=== PATIENT | female | born 1945 | race Caucasian/White ===

== ENCOUNTER 2020-07-07 11:10 | Day surgery (SDC) | payer MEDICARE, SELFPAY ==
[2020-07-07 11:15] VITALS: BP 167/96; PULSE 87; RESP 18; TEMP 36.3; O2SAT 95
[2020-07-07] MEDS: Tropicam./Phenyleph. (1/2.5%) 5 ML BTL OS ×3 (11:28→11:42)
[2020-07-07] MEDS: Tetracaine 0.5% 4 ML BTL OS (12:39)
[2020-07-07] MEDS: Lidocaine 2% Jelly 6 ML SYR (12:40)
[2020-07-07] MEDS: Povidone-Iodine Ophth 30 ML BTL (12:40)
[2020-07-07] MEDS: Lidocaine 1% Pres-Free 5 ML VIAL (12:46)
[2020-07-07] MEDS: Balanced Salt Soln.-PLUS 500 ML BAG (12:53)
[2020-07-07] MEDS: Duovisc Viscoelastic System EACH 1 EACH (12:54)
--- NOTE | 2020-07-07 13:10 | W.PM.DSUDISC ---
Discharge Plan Disposition Patient Disposition: HOME Condition: Good Discharge Details Attending Provider: Lake Gauthier Primary Care Provider: Christen Sierra V Home Meds and New Rx's Prescriptions: No Action No Known Home Meds RF: 0 Discharge Instructions Stand Alone Forms: Post-op Topical Cataract Discharge Orders Discharge Orders: Discharge Order (Routine); Ordered 07/07/20 Ordered By: Lake Gauthier DS: Diagnosis Discharge Diagnosis (1) Cortical cataract of left eye: Status: Resolved (2) Nuclear sclerotic cataract of left eye: Status: Resolved
--- NOTE | 2020-07-07 13:11 | W.PM.OP ---
Date of service: 07/07/20 Time of Service: 13:12 Operative Note Operative Note DATE OF PROCEDURE: 07/07/20 PRE-OP DIAGNOSIS: Nuclear cataract, left eye POST-OP DIAGNOSIS: same PROCEDURE: Cataract extraction using phacoemulsification with intraocular lens implant, left eye SURGEON: Lake Gauthier ANESTHESIA: MAC and local (sub-tenon's anesthetic infiltration) PATHOLOGY: none sent COMPLICATIONS: None Patient was transported to: same day Patient's condition: stable Implants: Dread and Dread Vision / [employer] Tecnis ZCB00 Indications: Progressive decreased vision due to cataract, left eye Procedure Description: CATARACT SURGERY OPERATIVE REPORT PREOPERATIVE DIAGNOSIS: Nuclear cataract, left eye POSTOPERATIVE DIAGNOSIS: Same OPERATION: Cataract extraction using phacoemulsification with posterior chamber intraocular lens implant, left eye. IOL: IOL Process Control Board Operator/Model: J&J Vision / DANILO Tecnis ZCB00 IOL Power: + 20.0 diopters IOL Serial Number: [id number] Optic Diameter: 6.0mm Haptic/Overall Diameter: 13.0mm PHACO INFO: Jorge [employer] USAurion Vision System with OZil and Active Fluidics Cumulative Dispersed Energy (CDE): 7.36 seconds SURGEON: Lake Gauthier MD, YAZAN ANESTHESIA: Monitored Anesthesia Care (MAC), with local sub-tenon's anesthetic infiltration COMPLICATIONS: None SPECIMENS: None INDICATIONS FOR PROCEDURE: The patient is a 74-year-old lady with history of diminished visual acuity in both eyes secondary to the development of bilateral nuclear cataract. She is significantly symptomatic that she desires cataract surgery and attempt to improve and maximize her vision. PROCEDURE: The correct surgical eye was identified and marked as the left eye and the pupil was dilated in the preoperative area using mydriatics and cycloplegics. The dilated pupil size was 7.0 mm. Oral sedation was administered in the form of an Imprimis MKO Melt (midazolam 3mg/ketamine 25mg/ondansetron 2mg). The patient was brought to the operating room where cardiopulmonary monitoring was instituted and surgical time-out was performed, confirming the correct operative eye and IOL power. Topical anesthesia was administered and ophthalmic povidone-iodine 5% was instilled into the conjunctival fornices. Lidocaine gel was applied to the cornea and the roger-ocular area was prepped with Betadine 10% solution and draped in the usual sterile fashion for intraocular surgery, including an aperture drape. A Tegaderm transparent film dressing was cut in half and used to cover the lashes and lid margins. Care was taken to sequester the lashes and lid margins under the Tegaderm dressing. A lid speculum was placed between the lids of the operative eye and the Angelo-Jd operating microscope was maneuvered into position. Yariel scissors were then used to make a conjunctival buttonhole approximately 6mm posterior to the limbus in the inferonasal quadrant. Blunt dissection was carried out to expose bare sclera, and a blunt-tipped sub-tenon?s anesthesia cannula was introduced and passed posteriorly along the globe where non-preserved plain lidocaine was injected into posterior sub-Tenon?s space. A sideport knife was used to make a paracentesis port superior/superiortemporally. Intraocular phenylephrine/lidocaine was injected into the anterior chamber. The anterior chamber was then filled with viscoelastic. A 2.4mm keratome knife was used to create a half-thickness groove at the limbus and then to construct a three-plane near-clear corneal tunnel extending 2.0mm into clear cornea in the temporal position. . A flap was raised on the anterior capsule and capsulorhexis forceps were used to complete a continuous curvilinear capsulorhexis of 5.0 mm. Balanced salt solution was then used to perform cortical cleaving hydrodissection and nuclear hydrodelineation until the lens could be freely rotated within the capsular bag. The lens nucleus was then disassembled and removed within the capsular bag and iris plane using phacoemulsification. Residual cortical material was removed using the 45-degree angled silicone I/A tip with 0.3mm port. The posterior capsule was carefully polished to remove as much residual lens epithelial cells as safely possible. The capsular bag was then inflated and the anterior chamber deepened with viscoelastic. The lens implant described above was inserted into the capsular bag using the DANILO [place] Injector. A Kuglen hook was used to dial the IOL into position. Residual viscoelastic was then removed first from posterior to the IOL, then from the anterior chamber using the I/A handpiece. The lens implant was noted to center nicely within the capsular bag. The incisions were stromally hydrated, and the anterior chamber was reformed using BSS. Then 0.5cc of moxifloxacin 1.0mg/ml were injected into the capsular bag and anterior chamber. The incisions were checked with a Weck spear and found to be secure. Several drops of ophthalmic povidone-iodine 5% were then applied to the eye followed by two drops of Imprimis combination prednisolone/moxifloxacin/nepafenac solution. The drapes were removed and a clear plastic protective eye shield was placed over the eye. The patient was then returned to Same Day Surgery in stable condition.
[2020-07-07 13:39] VITALS: BP 138/88; PULSE 80; RESP 17; TEMP 36.4; O2SAT 93
== END 2020-07-07 13:56 | disposition home or self-care (01) ==
PROVIDERS: PCP Family Medicine; Visit Provider Ophthalmology
PROC: (CPT 66984; principal; 2020-07-07 13:30)
DX: H25.012 Cortical age-related cataract, left eye (principal); H25.12 Age-related nuclear cataract, left eye; K21.9 Gastro-esophageal reflux disease without esophagitis
CPT/HCPCS: 66984; V2632

== ENCOUNTER 2020-07-21 07:18 | Day surgery (SDC) | payer MEDICARE, SELFPAY ==
[2020-07-21 07:30] VITALS: BP 153/91; PULSE 86; RESP 18; TEMP 36.5; O2SAT 95
[2020-07-21] MEDS: Tropicam./Phenyleph. (1/2.5%) 5 ML BTL OD ×3 (07:47→08:01)
[2020-07-21] MEDS: Tetracaine 0.5% 4 ML BTL OD (08:49)
[2020-07-21] MEDS: Povidone-Iodine Ophth 30 ML BTL (08:50)
[2020-07-21] MEDS: Lidocaine 2% Jelly 6 ML SYR (08:50)
[2020-07-21] MEDS: Lidocaine 1% Pres-Free 5 ML VIAL (08:56)
[2020-07-21] MEDS: Balanced Salt Soln.-PLUS 500 ML BAG (08:57)
[2020-07-21] MEDS: Duovisc Viscoelastic System EACH 1 EACH (08:57)
--- NOTE | 2020-07-21 09:19 | W.PM.DSUDISC ---
Discharge Plan Disposition Patient Disposition: HOME Discharge Details Attending Provider: Lake Gauthier Primary Care Provider: Christen Sierra V Home Meds and New Rx's Prescriptions: No Action No Known Home Meds RF: 0 Discharge Instructions Stand Alone Forms: Post-op Topical Cataract, Niranjan Alvarado (DSU) Discharge Orders Discharge Orders: Discharge Order (Routine); Ordered 07/21/20 Ordered By: Lake Gauthier DS: Diagnosis Discharge Diagnosis (1) Nuclear sclerotic cataract of right eye: Status: Resolved (2) Cortical cataract of right eye: Status: Resolved
--- NOTE | 2020-07-21 09:20 | W.PM.OP ---
Date of service: 07/21/20 Time of Service: 09:20 Operative Note Operative Note DATE OF PROCEDURE: 07/21/20 PRE-OP DIAGNOSIS: Nuclear/cortical cataract, right eye POST-OP DIAGNOSIS: same PROCEDURE: Cataract extraction using phacoemulsification with intraocular lens implant, right eye SURGEON: Lake Gauthier ANESTHESIA: MAC and local (sub-tenon's anesthetic infiltration) ESTIMATED BLOOD LOSS: 0 PATHOLOGY: none sent COMPLICATIONS: None Patient was transported to: same day Patient's condition: stable Implants: Dread and Dread Vision / [employer] Tecnis ZCB00 intraocular lens Indications: Progressive decreased vision due to cataract, right eye Procedure Description: CATARACT SURGERY OPERATIVE REPORT PREOPERATIVE DIAGNOSIS: Nuclear/cortical cataract, right eye POSTOPERATIVE DIAGNOSIS: Same OPERATION: Cataract extraction using phacoemulsification with posterior chamber intraocular lens implant, right eye. IOL: IOL Chief Optometry Service/Model: J&J Vision / DANILO Tecnis ZCB00 IOL Power: + 20.0 diopters IOL Serial Number: [id number] Optic Diameter: 6.0mm Haptic/Overall Diameter: 13.0mm PHACO INFO: Jorge [employer]!urion Vision System with OZil and Active Fluidics Cumulative Dispersed Energy (CDE): 5.53 seconds SURGEON: Lake Gauthier MD, YAZAN ANESTHESIA: Monitored Anesthesia Care (MAC), with local sub-tenon's anesthetic infiltration COMPLICATIONS: None SPECIMENS: None INDICATIONS FOR PROCEDURE: The patient is a 74-year-old lady with history of diminished visual acuity in both eyes secondary to the development of bilateral nuclear and cortical cataract. She has already undergone cataract surgery in her left eye and is doing well postoperatively. She now presents for cataract surgery in the right eye. PROCEDURE: The correct surgical eye was identified and marked as the right eye and the pupil was dilated in the preoperative area using mydriatics and cycloplegics. The dilated pupil size was 6.5 mm. Oral sedation was administered in the form of an Imprimis MKO Melt (midazolam 3mg/ketamine 25mg/ondansetron 2mg). The patient was brought to the operating room where cardiopulmonary monitoring was instituted and surgical time-out was performed, confirming the correct operative eye and IOL power. Topical anesthesia was administered and ophthalmic povidone-iodine 5% was instilled into the conjunctival fornices. Lidocaine gel was applied to the cornea and the roger-ocular area was prepped with Betadine 10% solution and draped in the usual sterile fashion for intraocular surgery, including an aperture drape. A Tegaderm transparent film dressing was cut in half and used to cover the lashes and lid margins. Care was taken to sequester the lashes and lid margins under the Tegaderm dressing. A lid speculum was placed between the lids of the operative eye and the Angelo-Jd operating microscope was maneuvered into position. Yariel scissors were then used to make a conjunctival buttonhole approximately 6mm posterior to the limbus in the inferonasal quadrant. Blunt dissection was carried out to expose bare sclera, and a blunt-tipped sub-tenon?s anesthesia cannula was introduced and passed posteriorly along the globe where non-preserved plain lidocaine was injected into posterior sub-Tenon?s space. A sideport knife was used to make a paracentesis port inferiortemporally. Intraocular phenylephrine/lidocaine was injected into the anterior chamber. The anterior chamber was then filled with viscoelastic. A 2.4mm keratome knife was used to create a half-thickness groove at the limbus and then to construct a three-plane near-clear corneal tunnel extending 2.0mm into clear cornea in the superiortemporal position. . A flap was raised on the anterior capsule and capsulorhexis forceps were used to complete a continuous curvilinear capsulorhexis of 4.8 mm. Balanced salt solution was then used to perform cortical cleaving hydrodissection and nuclear hydrodelineation until the lens could be freely rotated within the capsular bag. The lens nucleus was then disassembled and removed within the capsular bag and iris plane using phacoemulsification. Residual cortical material was removed using the I/A handpiece. The posterior capsule was carefully polished to remove as much residual lens epithelial cells as safely possible. The capsular bag was then inflated and the anterior chamber deepened with viscoelastic. The lens implant described above was inserted into the capsular bag using the DANILO [place] Injector. A Kuglen hook was used to dial the IOL into position. Residual viscoelastic was then removed first from posterior to the IOL, then from the anterior chamber using the I/A handpiece. The lens implant was noted to center nicely within the capsular bag. The incisions were stromally hydrated, and the anterior chamber was reformed using BSS. Then 0.5cc of moxifloxacin 1.0mg/ml were injected into the capsular bag and anterior chamber. The incisions were checked with a Weck spear and found to be secure. Several drops of ophthalmic povidone-iodine 5% were then applied to the eye followed by two drops of Imprimis combination prednisolone/moxifloxacin/nepafenac solution. The drapes were removed and a clear plastic protective eye shield was placed over the eye. The patient was then returned to Same Day Surgery in stable condition.
[2020-07-21 09:44] VITALS: BP 131/76; PULSE 66; RESP 16; TEMP 36.6; O2SAT 94
== END 2020-07-21 10:00 | disposition home or self-care (01) ==
PROVIDERS: PCP Family Medicine; Visit Provider Ophthalmology
PROC: (CPT 66984; principal; 2020-07-21 09:30)
DX: H25.11 Age-related nuclear cataract, right eye (principal); H25.011 Cortical age-related cataract, right eye; Z98.42 Cataract extraction status, left eye; Z96.1 Presence of intraocular lens; K21.9 Gastro-esophageal reflux disease without esophagitis
CPT/HCPCS: 66984; V2632

== ENCOUNTER 2021-06-18 21:16 | Emergency (ER) | payer MEDICARE, SELFPAY ==
--- NOTE | 2021-06-18 21:00 | RT.EKG_ITS ---
APPROVED REPORT Exam: Resting ECG Reason for Exam: syncope Patient Location: E HR:91 bpm ECG Measurements Heart Rate 91 AXIS FL 182 P 57 QRSd 87 QRS -5 QT 359 T 40 QTc 441 Conclusion Sinus rhythm...normal P axis, V-rate 60- 99 Normal [place] Nonspecific ST-T changes
[2021-06-18 21:21] VITALS: BP 165/80; PULSE 99; RESP 18; O2SAT 95
--- NOTE | 2021-06-18 21:30 | DI.CT_ITS ---
Exam(s) CT HEAD WO EXAM: CT HEAD WO CLINICAL HISTORY: syncope with fall. TECHNIQUE: Imaging Protocol: Axial computed tomography images with coronal and sagittal reformatted images were created and reviewed COMPARISON: CT HEAD WITH/WITHOUT CONTRAST from 12/13/2008 FINDINGS: Ventricles and Extra axial spaces: Normal in size and morphology for the patient's age. Hemorrhage: None. Cerebral parenchyma: Normal. Midline shift: None. Brainstem/Cerebellum: Normal. Calvarium: Normal. Visualized Paranasal sinuses/Mastoids: Clear. Soft Tissues: Unremarkable. IMPRESSION: No acute intracranial process. RADIATION DOSE DELIVERED: 584.57mGy.cm Total DLP DATA REPOSITORY: All CT scans at this facility are submitted to the National Radiology Data Registry (NRDR) Dose Index Registry (DIR) with the [employer] (ACR). RADIATION OPTIMIZATION: All CT scans at this facility use at least one of these dose optimization te chniques: automated exposure control; mA and/or kV adjustment per patient size (includes targeted exa ms where dose is matched to clinical indication); or iterative reconstruction.
--- NOTE | 2021-06-18 21:30 | DI.RAD_ITS ---
Exam(s) XR ANKLE LT COMPLETE EXAM: XR ANKLE LT COMPLETE CLINICAL HISTORY: fall trauma. TECHNIQUE: 2D digital imaging was performed. COMPARISON: No exams were available for comparison FINDINGS: There is soft tissue swelling laterally. There is a in oblique fracture of the distal metaphysis of the fibula with minimal displacement. There is also a nondisplaced fracture of the tip of the medial malleolus. Mild widening of the mortise noted on one view. Talar dome appears unremarkable. Poste rior malleolus unremarkable. Inferior calcaneal spur noted. Base of the 5th metatarsal is intact. IMPRESSION: Ankle fractures. Prominent soft tissue swelling laterally. Subtle suggestion of mild mortise wideni ng. DATA REPOSITORY: RADIATION DOSE DELIVERED:
--- NOTE | 2021-06-18 21:34 | W.ED.GENAD ---
Discharge Plan Disposition Patient Disposition: HOME Condition: Good Discharge Details Clinical Impression: Syncope, vasovagal, Closed left ankle fracture Primary Care Provider: Christen Sierra V ED Provider: Neeraj Chand Home Meds and New Rx's Prescriptions: No Action No Known Home Meds RF: 0 Discharge Instructions Instructions: Ankle Fracture (ED), Syncope (ED) Additional Instructions: Your laboratory studies, EKG fine and her story is most consistent with vagal syncope. CT of the head is negative for bleed or injury. You do have a ankle fracture and must wear the boot and be nonweightbearing until seen by orthopedics. Keep your leg elevated. Ice on and off over the weekend. Alternate Tylenol with ibuprofen to control pain. Follow-up with primary care next week in regards to the syncope just for recheck. Return to ED for any neurologic change, chest pain, shortness of breath, recurrent syncope. Referrals: [facility] [Provider Group] Christen Sierra MD [Primary Care Provider] - Medical Decision Making Patient here after syncopal event while having a bowel movement which sounds vagal in nature, with lightheadedness after bearing down before passing out. Did not experience chest pain, shortness of breath, headache, neurologic change. Injured her ankle during the fall off the toilet. Here has an unremarkable exam other than left ankle tenderness and swelling. She is neurovascularly intact. She has no spinal tenderness. She is mildly hypertensive otherwise normal vitals. Will obtain head CT and x-ray of left ankle. IV in place by EMS. Will check laboratory studies. EKG is sinus rhythm with slight nonspecific ST changes laterally. Normal intervals and axis. Head CT is negative. Left ankle with fracture of the distal fibula as well as what appears to be avulsion fracture off the medial malleolus. Patient will be placed in a tall boot and made nonweightbearing. Case was discussed briefly with Dr. Simpson on-call for orthopedics. In regards to laboratory work-up she is not anemic. Potassium was slightly low and this was replaced. White count is elevated at 14. Kidney function little on the high side. Urinalysis negative. First troponin negative. Repeat troponin and EKG are unchanged. No arrhythmias or alarms on monitor lab. Discussed findings with patient and her daughter. Feel this is likely vasovagal syncope but will have patient follow-up with primary care next week. She will also need follow-up with orthopedics next week. Return to ED for further syncope, chest pain, shortness of breath, neurologic change, other concerns. Lab Data Lab results reviewed: Yes I reviewed the patient's lab results. ECG Data Attestation: I personally reviewed and interpreted this ECG (s) as follows: Prior ECG tracings: not available for review Interpretation: see EKG HPI General Mode of arrival: EMS. Date/Time Provider Initiated Documentation: 06/18/21 21:34. Limitations to Documentation: no limitations. Information obtained by: patient and RN notes reviewed. HPI Narrative: Patient presents to the ED after syncopal event at home with left ankle pain and swelling. Patient reports going to the bathroom and having a bowel movement. During that time she became lightheaded, and then found herself on the bathroom floor. She has left ankle pain and swelling. She did not have any chest pain, shortness of breath, headache prior to the event. She was bearing down trying to empty her bowels. She has had maybe 1 episode of syncope a few years ago. She is otherwise healthy on no medications. She has not been ill otherwise. Currently has no complaints other than her left ankle. She denies headache, neck pain, neurologic changes, chest pain, shortness of breath, abdominal pain, fever, urinary symptoms. Related Data Home Medications Medication Instructions Recorded Confirmed Unknown [No Known Home Meds] 07/02/20 07/18/20 Allergies Allergy/AdvReac Type Severity Reaction Status Date / Time No Known Allergies Allergy Unverified 07/21/20 07:45 General Stated Complaint: GenMedical EMIL: 3 Review of Systems Narrative: As documented in HPI otherwise negative as below. Const: no fever, chills, weakness Resp: no cough, SOB, pleuritic pain CV: no CP, diaphoresis, edema GI: no abdominal pain, nausea, vomiting, diarrhea Neuro: no headache, numbness, focal weakness, confusion PFSH All Active Problems (Updated 06/19/21 @ 01:18 by Neeraj Chand MD) Syncope, vasovagal (Acute) Closed left ankle fracture (Acute) Medical History Acid reflux Surgical History History of colonoscopy History of esophagogastroduodenoscopy (EGD) Social History Smoking/Tobacco Use Status: Never Smoking risk assessment performed?: Yes Alcohol Intake: current Alcohol Intake frequency: holidays/special occasions only Drug use: Never Substance use type: does not use Do you feel safe at home: Yes Do you feel safe in your relationship?: Yes Exam Narrative Exam Narrative: Const: WDWN elderly female in NAD. HEENT: NC/AT. Normal facial exam. Neck: Supple. Trachea midline. No posterior c-spine tenderness. Lungs: Normal respiratory effort. Lungs are clear. Cor: RRR without murmur/gallop. Good radial pulses. GI: Soft. NT/ND. Neuro: A+O x 3. Normal speech, mentation, gait. Cranial nerves II - XII grossly intact. No gross motor or sensory deficit. Ext: No C/C/E. L:eft ankle with pain, swelling, tenderness lateral malleolus. Skin: Warm and dry without rash. Course Vital Signs Vital signs: Vital Signs Pulse 99 H 06/18/21 21:21 Respiratory Rate 18 06/18/21 21:21 Blood Pressure 165/80 H 06/18/21 21:21 Pulse Oximetry 95 06/18/21 21:21 Pulse 99 H 06/18/21 21:21 Respiratory Rate 18 06/18/21 21:21 Respiratory Effort 06/18/21 21:28 Respiratory Depth Normal 06/18/21 21:28 Respiratory Pattern Normal 06/18/21 21:28 Blood Pressure 165/80 H 06/18/21 21:21 Blood Pressure Position Supine 06/18/21 21:21 Pulse Oximetry 95 06/18/21 21:21 Oxygen Delivery Method Room Air 06/18/21 21:21 Oxygen Flow Rate 0 06/18/21 21:21 Pain Level 3 06/18/21 21:21
[2021-06-18 22:49] LABS: Abs Immature Grans 0.14 10^3/uL (0.0-0.06); Absolute Basophil Count 0.04 10^3/uL (0.0-0.2); Absolute Eosinophil Count 0.03 10^3/uL (0.0-0.7); Basophils % 0.3; Eosinophils % 0.2; HGB 15.1 g/dL (11.2-15.7); Lymphocytes % 6.6; MCH 30.1 pg (27.0-33.0); MCHC 32.8 % (32.0-36.0); MCV 91.6 fL (80-95); MPV 10.4 fL (8.0-11.0); Monocytes % 6.6; Neutrophils % 85.3; Nucleated RBC 0 %; Platelet Count 181 10^3/uL (130-400); RBC 5.02 10^6/uL (3.93-5.22); RDW 12.5 % (11.7-14.6); WBC 14.32 10^3/uL (4.4-10.8)
[2021-06-18 22:51] LABS: Absolute Lymphocyte Count 0.95 10^3/uL (1.2-3.4); Absolute Monocyte Count 0.95 10^3/uL (0.1-0.8); Absolute Neutrophil Count 12.21 10^3/uL (1.2-6.7)
[2021-06-18 22:59] VITALS: BP 155/77; PULSE 78; RESP 18; O2SAT 96
--- NOTE | 2021-06-18 23:02 | SUR.PHASEI ---
attempted to acquire urine sample pt unable to void
--- NOTE | 2021-06-18 23:12 | DI.VRAD_ITS ---
PROCEDURE INFORMATION: Exam: CT Head Without Contrast Exam date and time: 06/18/2021 9:46 PM Age: 75 years old Clinical indication: Injury or trauma; Fall; Blunt trauma (contusions or hematomas); Injury details: Syncope TECHNIQUE: Imaging protocol: Computed tomography of the head without contrast. COMPARISON: No relevant prior studies available. FINDINGS: Brain: Normal. No hemorrhage. Unremarkable white matter. No mass effect. Cerebral ventricles: No ventriculomegaly. Paranasal sinuses: Visualized sinuses are unremarkable. No fluid levels. Mastoid air cells: Visualized mastoid air cells are well aerated. Bones/joints: Unremarkable. No acute fracture. Soft tissues: Unremarkable. IMPRESSION: No acute intracranial abnormality. Dictated and Authenticated by: Chu Samayoa MD. Ordering:RICHIE Pickard MD
--- NOTE | 2021-06-18 23:14 | DI.VRAD_ITS ---
PROCEDURE INFORMATION: Exam: XR Left Ankle Exam date and time: 06/18/2021 9:46 PM Age: 75 years old Clinical indication: Other: Pain TECHNIQUE: Imaging protocol: XR Left ankle. Views: 3 or more views. COMPARISON: No relevant prior studies available. FINDINGS: Bones/joints: Minimally displaced oblique fracture through the distal metaphysis of the left fibula. Soft tissues: Moderate soft tissue swelling overlying the lateral malleolus. IMPRESSION: 1. Minimally displaced oblique fracture through the distal metaphysis of the left fibula. 2. Moderate soft tissue swelling overlying the lateral malleolus. Dictated and Authenticated by: Chu Samayoa MD. Ordering:RICHIE Pickard MD
[2021-06-18 23:16] LABS: ALT 69 U/L (14-59); AST 53 U/L (15-37); Alkaline Phosphatase 71 U/L (46-116); Anion Gap 11.3 mmol/L (3-11); BUN 20 mg/dL (7-18); Bilirubin, Total 0.5 mg/dL (0.2-1.0); CO2 24.7 mmol/L (21.0-32.0); CREATININE 1.2 mg/dL (0.55-1.02); Calcium 9.4 mg/dL (8.5-10.1); Chloride 107 mmol/L (98-107); Glucose 112 mg/dL (74-106); Magnesium 2.5 mg/dL (1.8-2.4); Potassium 3.2 mmol/L (3.5-5.1); Sodium 143 mmol/L (136-145); Total Protein 8.4 g/dL (6.4-8.2); Troponin I < 50 ng/L (<or=60)
[2021-06-18] MEDS: Potassium Chloride 20 MEQ TABCR 40 MEQ PO (23:39)
[2021-06-18 23:47] LABS: Bilirubin Negative (Negative); Blood Negative (Negative); Clarity Sl Cloudy (Clear); Glucose Negative (Negative); Ketones Negative (Negative); Leukocyte Esterase Negative (Negative); Nitrite Negative (Negative); Specific Gravity >= 1.030 (1.005-1.025); Urobilinogen 0.2 EU/dL (Up TO 0.2); pH 5.5 (5-8)
[2021-06-18 23:56] LABS: Epithelial Cells Rare HPF (Negative); RBC Negative HPF (0-2)
[2021-06-18 23:57] LABS: Bacteria Few HPF (Negative); C & S Indicated? No; Casts 3-5 Fine Granular LPF (Negative); Crystals Negative HPF (Negative); Mucus Negative (Negative); Other Cells Rare Renal (Negative)
[2021-06-19 00:31] VITALS: BP 165/66; PULSE 92; RESP 18; O2SAT 97
--- NOTE | 2021-06-19 00:45 | RT.EKG_ITS ---
APPROVED REPORT Exam: Resting ECG Reason for Exam: syncope Patient Location: E HR:100 bpm ECG Measurements Heart Rate 100 AXIS TN 183 P 54 QRSd 91 QRS 5 QT 351 T 34 QTc 453 Conclusion Sinus tachycardia...rate> 99 There are no significant changes compared to prior EKG performed on 06/18/2021 at 21:30.
[2021-06-19 00:47] LABS: Troponin I < 50 ng/L (<or=60)
== END 2021-06-19 01:56 | disposition home or self-care (01) ==
PROVIDERS: Emergency Provider Emergency Medicine; PCP Family Medicine
DX: R55 Syncope and collapse (principal); S82.892A Other fracture of left lower leg, initial encounter for closed fracture; W18.39XA Other fall on same level, initial encounter
CPT/HCPCS: 29515; 36415; 80053; 93005; 99285; 70450; 73610; 81003; 81015; 83735; 84484; 85025; 93010; 99284

== ENCOUNTER 2021-06-23 11:47 | Outpatient (CLI) | payer MEDICARE, SELFPAY ==
--- NOTE | 2021-06-23 11:15 | DI.RAD_ITS ---
Exam(s) XR ANKLE LT COMPLETE EXAM: XR ANKLE LT COMPLETE CLINICAL HISTORY: left ankle fracture TECHNIQUE: 2D digital imaging was performed of the left ankle. Four images were obtained. AP, late ral and oblique views were obtained. COMPARISON: CR,XR XR ANKLE LT COMPLETE from 06/18/2021 FINDINGS: BONES: Stable distal fibular and distal tibial fractures. No bony destructive lesion is seen. Calcan eal spur. Calcaneal enthesophyte. JOINTS:There is mild widening of the medial ankle joint. SOFT TISSUE: Soft tissue swelling about the ankle. IMPRESSION: Stable distal tibial and fibular fractures. Persistent mild widening of the ankle mortise. DATA REPOSITORY: RADIATION DOSE DELIVERED:
== END 2021-06-23 11:48 | disposition home or self-care (01) ==
LOC: DIORS 11:48
PROVIDERS: PCP Family Medicine; Referring Provider Family Medicine; Visit Provider Physician Assistant Surgical
DX: S82.892A Other fracture of left lower leg, initial encounter for closed fracture (principal); X58.XXXA Exposure to other specified factors, initial encounter
CPT/HCPCS: 99214; 29425; 73610

== ENCOUNTER 2021-07-21 14:22 | Outpatient (CLI) | payer MEDICARE, SELFPAY ==
--- NOTE | 2021-07-21 14:15 | DI.RAD_ITS ---
Exam(s) XR ANKLE LT COMPLETE EXAM: XR ANKLE LT COMPLETE CLINICAL HISTORY: follow up. TECHNIQUE: 2D digital imaging was performed. COMPARISON: CR XR ANKLE LT COMPLETE from 06/23/2021 FINDINGS: Post closed reduction in cast views reveal some improved alignment at the fracture sites. Mild widen ing of the mortise evident. Talar dome unremarkable. Inferior calcaneal spur noted IMPRESSION: DATA REPOSITORY: RADIATION DOSE DELIVERED:
== END 2021-07-21 14:23 | disposition home or self-care (01) ==
LOC: DIORS 14:22
PROVIDERS: PCP Family Medicine; Referring Provider Family Medicine; Visit Provider Student in an Organized Health Care Education/Training Program
DX: S82.892D Other fracture of left lower leg, subsequent encounter for closed fracture with routine healing (principal); X58.XXXD Exposure to other specified factors, subsequent encounter
CPT/HCPCS: 99213; 73610

== ENCOUNTER 2021-08-18 14:53 | Outpatient (CLI) | payer MEDICARE, SELFPAY ==
--- NOTE | 2021-08-18 13:45 | DI.RAD_ITS ---
Exam(s) XR ANKLE LT COMPLETE EXAM: XR ANKLE LT COMPLETE CLINICAL HISTORY: LEFT ANKLE FX F/U. TECHNIQUE: 2D digital imaging was performed. COMPARISON: CR XR ANKLE LT COMPLETE from 07/21/2021 FINDINGS: Cast has been removed. The healing fractures in distal fibula and medial malleolus are again noted. Fracture line barely visible. No widening of the mortise. Talar dome unremarkable. Large inferior calcaneal spur is again noted. No obvious degenerative changes in the tibiotalar and subtalar joint s. IMPRESSION: DATA REPOSITORY: RADIATION DOSE DELIVERED:
== END 2021-08-18 14:54 | disposition home or self-care (01) ==
LOC: DIORS 14:53
PROVIDERS: PCP Family Medicine; Referring Provider Family Medicine; Visit Provider Student in an Organized Health Care Education/Training Program
DX: S82.892D Other fracture of left lower leg, subsequent encounter for closed fracture with routine healing (principal); X58.XXXD Exposure to other specified factors, subsequent encounter
CPT/HCPCS: 99214; 73610

== ENCOUNTER 2021-09-14 10:51 | Outpatient (REF) | payer MEDICARE, SELFPAY ==
[2021-09-14 12:14] LABS: HCT 46.5 % (36.0-46.0); HGB 14.9 g/dL (11.2-15.7); MCH 29.7 pg (27.0-33.0); MCV 92.6 fL (80-95); MPV 11.9 fL (8.0-11.0); Platelet Count 218 10^3/uL (130-400); RBC 5.02 10^6/uL (3.93-5.22); RDW 14.5 % (11.7-14.6); RDW-SD 49.5 fL; WBC 5.33 10^3/uL (4.4-10.8)
[2021-09-14 12:37] LABS: ALT 37 U/L (14-59); AST 24 U/L (15-37); Albumin 3.8 g/dL (3.4-5.0); Alkaline Phosphatase 73 U/L (46-116); Anion Gap 13.2 mmol/L (3-11); BUN 12 mg/dL (7-18); Bilirubin, Total 0.9 mg/dL (0.2-1.0); C-Reactive Protein 0.15 mg/dL (0.0-0.3); CO2 25.8 mmol/L (21.0-32.0); CREATININE 1.1 mg/dL (0.55-1.02); Calcium 9.7 mg/dL (8.5-10.1); Chloride 107 mmol/L (98-107); Estimated GFR 48.42 (mL/min/1.73m2); Glucose 101 mg/dL (74-106); Potassium 3.2 mmol/L (3.5-5.1); Sodium 146 mmol/L (136-145); TSH (W/Ref FT4) 7.28 uIU/mL (0.36-3.74); Total Protein 7.3 g/dL (6.4-8.2)
[2021-09-14 13:11] LABS: FREE T4 0.97 ng/dL (0.76-1.46)
== END 2021-09-14 10:52 | disposition home or self-care (01) ==
LOC: NCHCN 10:51
PROVIDERS: PCP Family Medicine; Visit Provider Family Medicine
DX: R63.4 Abnormal weight loss (principal)
CPT/HCPCS: 80053; 85027; 84439; 84443; 86140

== ENCOUNTER → 2021-09-16 12:43 | Outpatient (BNVA) | payer MEDICARE, SELFPAY | PROVIDERS: PCP Family Medicine; Referring Provider Family Medicine | DX: X58.XXXA Exposure to other specified factors, initial encounter (principal); S82.892A Other fracture of left lower leg, initial encounter for closed fracture | CPT/HCPCS: 99214 ==

== ENCOUNTER 2021-11-09 16:49 | Outpatient (REF) | payer MEDICARE, SELFPAY ==
[2021-11-09 22:01] LABS: BUN 16 mg/dL (7-18); Calcium 9.3 mg/dL (8.5-10.1); Calculated LDL 173 mg/dL (<100); Chloride 107 mmol/L (98-107); Cholesterol 246 mg/dL (<200); Estimated GFR 54.05 (mL/min/1.73m2); Glucose 87 mg/dL (74-106); HDL Cholesterol 44 mg/dL (40-60); Potassium 3.9 mmol/L (3.5-5.1); Sodium 144 mmol/L (136-145); TSH (W/Ref FT4) 5.51 uIU/mL (0.36-3.74); Triglyceride 145 mg/dL (<150)
[2021-11-09 22:18] LABS: FREE T4 0.79 ng/dL (0.76-1.46)
== END 2021-11-09 16:50 | disposition home or self-care (01) ==
LOC: NCHCN 16:49
PROVIDERS: PCP Family Medicine; Visit Provider Family Medicine
DX: R94.6 Abnormal results of thyroid function studies (principal); E78.79 Other disorders of bile acid and cholesterol metabolism; Z86.79 Personal history of other diseases of the circulatory system
CPT/HCPCS: 80048; 80061; 84439; 84443

== ENCOUNTER 2022-10-18 00:38 | Outpatient (CLI) | payer MEDICARE, SELFPAY ==
--- NOTE | 2022-10-18 11:35 | DI.MAMMO_ITS ---
Exam(s) MAMMO SCREENING EXAM: MAMMO SCREENING CLINICAL HISTORY: SCREENING FOR BREAST CANCER Z12.31. TECHNIQUE: Bilateral full field digital CC and MLO mammographic images were obtained with 3D tomosyn thesis and utilizing computer aided detection (CAD). COMPARISON: None. Last mammogram was 2008. FINDINGS: There are no spiculated masses nor malignant appearing microcalcification groups. There is no significant architectural distortion nor skin thickening-retraction. IMPRESSION: No radiographic evidence of malignancy. BI-RADS Category 1 - Negative Breast Density - Category B - Scattered areas of fibroglandular density Breast density Category C or D implies that the patient has dense breast tissue. Dense breast tissue can make it harder to find cancer on a mammogram. Dense breast tissue is also associated with an incr eased risk of breast cancer. This information about the result of the mammogram report was provided to the patient to raise their awareness. Use this report when you speak with the patient about their risks for breast cancer, which includes their family history. At that time, you may recommend additional screening tests (Ultrasoun d or MRI) as these tests may add significant information. A negative radiographic report should not delay biopsy if a dominant or clinically suspicious mass is present. Up to ten percent of cancers are not identified on mammography. A negative report may reinforce clinical impression. Adenosis and dense breasts may obscure an underlying neoplasm. False positive reports average 6 to 10%. Patient will receive a letter notifying them of these results.
== END 2022-10-18 00:58 ==
PROVIDERS: PCP Family Medicine; Visit Provider Family Medicine
DX: Z12.31 Encounter for screening mammogram for malignant neoplasm of breast (principal)
CPT/HCPCS: 77063; 77067

== ENCOUNTER 2023-05-24 16:28 | Outpatient (REF) | payer MEDICARE, SELFPAY ==
[2023-05-24 16:14] LABS: FREE T4 0.82 ng/dL (0.76-1.46)
== END 2023-05-24 16:29 | disposition home or self-care (01) ==
LOC: NCHCN 16:28
PROVIDERS: PCP Family Medicine; Visit Provider Family Medicine
DX: R94.6 Abnormal results of thyroid function studies (principal)
CPT/HCPCS: 84439

== ENCOUNTER → 2023-12-15 | Outpatient (CLI) | payer MEDICARE, SELFPAY ==
--- NOTE | 2023-12-15 | DI.DEXA_ITS ---
Exam(s) XR DEXA BONE DENSITY W/WO RENE EXAM: XR DEXA BONE DENSITY W/WO RENE CLINICAL HISTORY: POSTMENOPAUSAL Z78.0 TECHNIQUE: COMPARISON: DX DEXA BONE DENSITY WITH RENE from 06/18/2009 FINDINGS: Lateral Spine Image: Unremarkable. No compression deformities identified. Left hip: Total T-Score: -1.8. This compares to -0.3 on the prior examination. Total Z-Score: 0.1 T- and Z-scores: Findings are consistent with osteopenia. There is no evidence of osteoporosis. Lumbar Spine: Total T-Score: -1.4. This compares to -1.7 on the prior examination. Total Z-Score: 1.1 T- and Z-scores: Findings are consistent with osteopenia. There is no evidence of osteoporosis. IMPRESSION: No evidence of osteoporosis.
== END ==
PROVIDERS: PCP Family Medicine; Visit Provider Family Medicine
DX: Z78.0 Asymptomatic menopausal state (principal)
CPT/HCPCS: 77080